=== PATIENT | male | born 1995 | race Caucasian/White ===

== ENCOUNTER → 2016-09-24 | Outpatient (CLI) | payer OTHER | LOC: EMI 08:54 | DX: M54.9 Dorsalgia, unspecified (principal); D36.10 Benign neoplasm of peripheral nerves and autonomic nervous system, unspecified; M41.20 Other idiopathic scoliosis, site unspecified; M51.27 Other intervertebral disc displacement, lumbosacral region | CPT/HCPCS: 72157; 72158; A9577; J7050 ==